=== PATIENT | male | born 1990 | race Caucasian/White ===

== ENCOUNTER 2016-09-30 12:47 | Emergency (ER) | payer OTHER ==
[~2016-09-30] VITALS: Ht 180.3 cm; Wt 90.9 kg
[2016-09-30 12:49] VITALS: BP 105/70; PULSE 82; RESP 16; O2SAT 99
--- NOTE | 2016-09-30 12:56 | ED.REPORT ---
HPI-General Illness Date of Service Sep 30, 2016 ED Provider: Dr. Larsen Pt is a 26 y/o male w/ a hx of anxiety presenting to the ED c/o worsening possible medication reaction onset 1 hour ago. Pt took 15 mg Buspirone for his first time ever and one hour later developed symptoms such as shakes, dizziness , lightheadedness, and nausea. His Buspirone is prescribed by MD for anxiety. He takes no other medications. He denies increased CP (states long-term chronic from prior musculoskeletal injuries), SOB, fever, chills, vomiting, signs of anaphylaxis, angioedema, hives, sneezing, rhinorrhea, itching. He has never had a reaction like this before. PCP: MD Nursing Notes Stated Complaint: MEDICATION REACTION Chief Complaint: General Complaint Nursing Notes Reviewed: Yes Allergies: Coded Allergies: No Known Allergies (Unverified Allergy, Unknown, 09/30/16) General Time Seen by MD: 12:55 Chief Complaint Other (Possible med rxn) Hx Obtained From: Patient Arrived By: Walk-in Sudden in Onset?: Yes Onset Occurred: Just prior to arrival Symptom Duration: Since onset Severity: Current: No pain currently Severity: Maximum: No pain Similar Sx Previous: No Past Medical History Past Medical History Anxiety Insomnia Back pain Traumatic musculoskeletal injuries Past Surgical History Righ shoulder surgery Family History Father (50 yr old) had one previous heart attack Reports: Stroke Smoking History Never Smoker Social History Alcohol Use: 1-3 per week Drug Use: Denies drug use Other Social History: Good social support, Local resident Occupation lives with Dad at present Ambulatory Status Independent Review of Systems Full Review of Systems Constitutional: Denies: Chills, Fever Respiratory: Denies: Shortness of breath Cardiovascular: Denies: Chest pain GI: Reports: Nausea, Denies: Vomiting Allergy / Immune: Denies: Anaphylaxis, Hives, Itching, Rhinorrhea, Sneezing Neurologic: Reports: Dizziness, Lightheaded, Shaking Complete sys rev & neg: except as marked. Physical Exam Vital Signs Vital Signs Date Time Temp Pulse Resp B/P Pulse Ox O2 Delivery O2 Flow Rate FiO2 09/30/16 14:53 78 15 130/66 100 09/30/16 13:48 60 126/71 99 Room Air 09/30/16 13:48 66 130/64 97 Room Air 2/2/17 13:48 76 136/76 98 Room Air 09/30/16 12:49 36.4 82 16 105/70 99 Room Air Initial VS: Reviewed, Vital signs normal Neck: Supple, Full range of motion Respiratory: Breath sounds normal, Clear to auscultation, No respiratory distress Cardiovascular: Regular rate & rhythm, Heart sounds normal, Intact distal pulses Extremities: Vascular intact, Neuro intact, No swelling, No tenderness Skin: Warm, Dry, No cyanosis Psychiatric: Mood/affect normal, Behavior normal, Normal thought content General/Constitutional: Awake, Alert, No acute distress, Well appearing, Cooperative, Not toxic appearing Head / Eyes: Atraumatic, Normocephalic, PERRL, EOMI ENT: Atraumatic, Airway patent, Mucous membranes moist, Pharynx NL Abdomen: Atraumatic, Soft, Non-tender, No guarding, No rebound, BS normoactive , No distention, No palpable mass Neurologic: Oriented X3, Speech NL, No motor deficits, No sensory deficits, CN II - XII intact, Memory NL Very mild tremor Interpretation & Diagnostics ECG Interpretation Time: 13:35 Interpreted by: ED physician Normal ECG Interpretation: Normal ECG w/ rate of... (74), Normal rate, Normal sinus rhythm, No acute ischemic changes, Normal QRS, Normal axis, Normal intervals, Adequate tracing Re-Eval/Medical Decision Med Decision/Clinical Course Lorazepam 1mg PO and zofran. felt better. no new issues during observation Source of Hx: Old records Time of Eval: 14:26 Patient Status: Condition improved, Moderate relief Re-Evaluation/Progress Note: Pt rechecked. Discussed negative EKG. He feels much better. Informed pt of plan for treatment. Pt understands and agrees with plan for treatment. F/U and RTER warnings given. All questions addressed. Counseled Regarding: Diagnosis, Need for follow-up, When/why to return to ED Discharge & Departure Primary Impression: Adverse reaction to drug Encounter type: initial encounter Qualified Code: T88.7XXA - Unspecified adverse effect of drug or medicament, initial encounter Disposition: Home Discharge Condition All VS Reviewed: Yes Condition: Stable Additional Instructions: Emergency department today were performed on examination, and an ECG. We treated for anxiety and nausea. There is not appear to be a serious problem, we do recommend that you stop the buspirone. Contact your doctor tomorrow for recommendations regarding further treatment. Referrals: [facility] ([facility]) Yimi Attestation Portions of this note were transcribed by Terell Spaulding. I, Dr. Larsen personally performed the history, physical exam and medical decision-making; I reviewed and confirmed the accuracy of the information in the transcribed note. Signed by Yimi Alberts, 09/30/16 - [id number] copies to: [facility] Jason Larsen MD Sep 30, 2016 12:55 TERELL SPAULDING Sep 30, 2016 13:02
[2016-09-30] MEDS ORDERED: LORazepam 1 mg Tablet PO ONE (13:20)
[2016-09-30] MEDS ORDERED: Ondansetron 8 mg ODT Tablet PO ONE (13:20)
[2016-09-30 13:48] VITALS: BP_SYST 126; BP_SYST 130; BP_SYST 136; BP_DIAS 64; BP_DIAS 71; BP_DIAS 76; PULSE 60; PULSE 66; PULSE 76; O2SAT 97; O2SAT 98; O2SAT 99
[2016-09-30 14:53] VITALS: BP 130/66; PULSE 78; RESP 15; O2SAT 100
== END 2016-09-30 14:50 | disposition home or self-care (01) ==
LOC: SED 12:47
DX: T43.595A Adverse effect of other antipsychotics and neuroleptics, initial encounter (principal); F41.9 Anxiety disorder, unspecified; X58.XXXA Exposure to other specified factors, initial encounter; Y93.89 Activity, other specified; Y99.8 Other external cause status; Y92.9 Unspecified place or not applicable

== ENCOUNTER 2016-10-13 10:05 | Emergency (ER) | payer OTHER ==
[~2016-10-13] VITALS: Ht 180.3 cm; Wt 90.9 kg
[2016-10-13 10:22] VITALS: BP 142/88; PULSE 94; RESP 10; O2SAT 97
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
[2016-10-13] MEDS ORDERED: ZLP10T PO (11:51)
[2016-10-13 12:06] VITALS: BP 131/61; PULSE 76; RESP 17; O2SAT 99
== END 2016-10-13 12:07 | disposition home or self-care (01) ==
LOC: SED 10:05
DX: S06.0X9A Concussion with loss of consciousness of unspecified duration, initial encounter (principal); R51 Headache; R42 Dizziness and giddiness; R11.0 Nausea; R41.0 Disorientation, unspecified; T42.6X5A Adverse effect of other antiepileptic and sedative-hypnotic drugs, initial encounter; W06.XXXA Fall from bed, initial encounter; Y92.009 Unspecified place in unspecified non-institutional (private) residence as the place of occurrence of the external cause; Y93.84 Activity, sleeping; Y99.8 Other external cause status; G47.00 Insomnia, unspecified; Z87.820 Personal history of traumatic brain injury

== ENCOUNTER 2016-10-14 18:07 | Emergency (ER) | payer OTHER ==
[~2016-10-14] VITALS: Ht 180.3 cm; Wt 90.0 kg
[~2016-10-14 18:07] MED LIST: ZLP10T PO
[2016-10-14 18:13] VITALS: BP 143/83; PULSE 94; RESP 16; O2SAT 99
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
[2016-10-14 19:42] LABS: BASOPHILS % (AUTO) 0.3 % (0-3); EOSINOPHILS % (AUTO) 2.8 % (0-5); MONOCYTES % (AUTO) 9.7 % (4-12); Mean Corpuscular Hemoglobin 30.1 pg (27.0-35.0); Mean Corpuscular Volume 88.4 fL (81-100); NEUTROPHILS % (AUTO) 56.5 % (40-74); Platelet Count 358 bil/L (150-400)
--- NOTE | 2016-10-14 20:02 | DRSVH ---
PROCEDURE: CT BRAIN WITHOUT CONTRAST ([id number]) INDICATIONS: head trauma, worsening symptoms. severe headache TECHNIQUE: Noncontrast 4.5 mm thick angled axial sections acquired from the foramen magnum to the vertex, with c oronal reformats. COMPARISON: [facility], CT, CT BRAIN WO CON, 10/13/2016, 10:56. FINDINGS: Image quality: Excellent. CSF spaces: Basal cisterns are patent. No extra-axial fluid collections. Ventricles are normal in size and shape. Brain: No midline shift. No intracranial masses or hemorrhage. Bowling-white matter interface is norm al. Skull and face: Calvarium and visualized facial bones are intact, without suspicious lesions. Sinuses: Visualized sinuses and mastoids are clear. IMPRESSION: No intracranial abnormality identified. No change seen since the previous CT of 10/13/16. Dictated by: Jose Luque M.D. on 10/14/2016 at 19:59 Approved by: Jose Luque M.D. on 10/14/2016 at 20:02
== END 2016-10-14 20:38 | disposition home or self-care (01) ==
LOC: SED 18:07
DX: S06.0X0A Concussion without loss of consciousness, initial encounter (principal); W19.XXXA Unspecified fall, initial encounter; Y92.009 Unspecified place in unspecified non-institutional (private) residence as the place of occurrence of the external cause; Y93.89 Activity, other specified; Y99.8 Other external cause status; Z87.820 Personal history of traumatic brain injury; Z87.828 Personal history of other (healed) physical injury and trauma

== ENCOUNTER 2016-12-04 12:43 | Emergency (ER) | payer OTHER ==
[~2016-12-04] VITALS: Ht 180.3 cm; Wt 86.4 kg
[2016-12-04 12:49] VITALS: BP 142/83; PULSE 101; RESP 12; O2SAT 97
--- NOTE | 2016-12-04 14:06 | ED.REPORT ---
HPI-Back Pain Under 40 Date of Service Dec 04, 2016 ED Provider: Cruz Kathleen MD A 26 year old male with a history of head injury, sciatic nerve pinch, spinal stenosis, and spinal injury in 2010 presents to the ED complaining of bilateral leg weakness and back pain. The pain originates in his low back and radiates down his legs. The pt was injured in [place] [employer] in 2010 and has been experiencing worsening back pain since. He is now experiencing bilateral leg weakness that has progressed to the point that he could hardly walk or drive to the ED, though sensation is intact in both legs. He experienced similar symptoms earlier this week. He denies bowel or bladder incontinence, numbness, tingling, abdominal pain, fever, or chills. He had an MRI on 11/16/2016 that showed no concerning findings. Nursing Notes Stated Complaint: SCIATICA NERVE PINCH Chief Complaint: Back Pain or Injury Nursing Notes Reviewed: Yes Allergies: Coded Allergies: No Known Allergies (Unverified Allergy, Unknown, 09/30/16) Scheduled PRN Zolpidem (Ambien) 10 Mg Tablet 10 MG PO HS PRN PRN For Insomnia General Time Seen by MD: 14:04 Chief Complaint Other (Bilateral leg weakness) Hx Obtained From: Patient Arrived By: Walk-in Sudden in Onset?: No Onset Occurred: More than a week ago... Symptom Duration: Since onset Recent Healthcare: No recent hospitalization, Recent doctor visit Similar Sx Previous: No Past Medical History Past Medical History Anxiety Insomnia Spinal stenosis Sciatic nerve pinch Back pain Traumatic musculoskeletal injuries concussion (2010, Sep 2016) Past Surgical History Right shoulder surgery Family History Father (50 yr old) had one previous heart attack Reports: Stroke Smoking History Never Smoker Social History Alcohol Use: "Social" Drug Use: Denies drug use Other Social History: Good social support, Local resident Occupation lives with Dad at present Ambulatory Status Cane Review of Systems Constitutional: Denies: Fever Respiratory: Denies: Non-productive cough, Shortness of breath Cardiovascular: Denies: Chest pain GI: Denies: Abdominal pain Musculoskeletal: Reports: Back pain, Denies: Neck pain Neurologic: Reports: Weakness (bilateral legs) Complete sys rev & neg: except as marked. Physical Exam Initial Vital Signs Vital Signs (First) Date Time Temp Pulse Resp B/P Pulse Ox O2 Delivery O2 Flow Rate FiO2 12/04/16 12:49 36.5 101 12 142/83 97 Room Air Initial VS: Reviewed General/Constitutional: Awake, Alert Back: Atraumatic, Full range of motion Neurologic: Oriented X3, Speech NL, No motor deficits, No sensory deficits Neck: Atraumatic, Supple, Full range of motion Respiratory / Chest: Atraumatic, Breath sounds NL, Breath sounds = bilat, No respiratory distress Cardiovascular: Heart rate NL, Regular rhythm, Heart sounds NL Abdomen: Atraumatic, Soft, Non-tender Lower Extremity / Pelvis / MS: Atraumatic, Full range of motion straight leg test positive bilaterally at 30 degrees normal dorsiflexion and plantarflexion strength able to extend hip Head / Eyes: Atraumatic, Normocephalic, PERRL, EOMI ENT: Atraumatic, Airway patent, Mucous membranes moist Upper Extremity / MS: Atraumatic, Full range of motion Skin: Atraumatic, Color NL, No rash, Warm, Dry Psychiatric: Affect NL, Mood NL Interpretation & Diagnostics Interpretation & Diagnostics: MRI at [facility] last month: L-Spine MR without contrast: IMPRESSION: Overall, unchanged examination since 03/08/16 with redemonstration of minimal degenerative changes in the lower lumbar spine. No canal or foraminal stenosis. Re-Eval/Medical Decision Med Decision/Clinical Course While the patient complains of inability to move his legs, objectively I do not discern this. He is clearly able to hold both legs off of the examination table for 5 seconds extending at the hip. He is also able to stand and hold himself on his toes and then alternatively on his heels without difficulty. It is not clear to me why does he perceives this weakness. That in combination with his normal MRI very recently reads me puzzled as to the etiology of his symptoms. I recommend outpatient follow-up with his primary care doctor in the coming days. Source of Hx: Old records Counseled Regarding: Diagnosis, Need for follow-up, When/why to return to ED Discharge & Departure Impression: Primary Impression: Lumbosacral strain Encounter type: subsequent encounter Qualified Code: S39.012D - Strain of muscle, fascia and tendon of lower back, subsequent encounter Disposition: Home All VS Reviewed: Yes Condition: Stable Patient Instructions: Acute Low Back Pain (ED), How to Choose and Use a Walker (GEN) Additional Instructions: No dangerous nerve impingement is identified today. Follow-up with your primary care provider at the [facility] in the coming days for further assessment. It may be advisable to do further neurologic testing such as EMG. Return to the emergency department if you develop any new or worsening symptoms such as incontinence or falling. Referrals: [facility] (PCP) Scribe Attestation Portions of this note were transcribed by Sidney Encarnacion. I, Dr. Kathleen personally performed the history, physical exam and medical decision-making; I reviewed and confirmed the accuracy of the information in the transcribed note. Signed by: Yimi Sanchez, 12/04/16 and 1424. copies to: [facility] Cruz Kathleen MD Dec 04, 2016 14:06 SIDNEY ENCARNACION Dec 04, 2016 14:13
== END 2016-12-04 14:30 | disposition home or self-care (01) ==
LOC: SED 12:43
DX: S39.012D Strain of muscle, fascia and tendon of lower back, subsequent encounter (principal); X58.XXXD Exposure to other specified factors, subsequent encounter; Y93.89 Activity, other specified; Y92.89 Other specified places as the place of occurrence of the external cause; Y99.8 Other external cause status